=== PATIENT | female | born 1960 | race Caucasian/White ===

== ENCOUNTER → 2021-04-21 13:45 | Outpatient (BNVA) | payer MEDICARE, SELFPAY | PROVIDERS: PCP Nurse Practitioner Family; Visit Provider Specialist | DX: G35 Multiple sclerosis (principal); F02.80 Dementia in other diseases classified elsewhere, unspecified severity, without behavioral disturbance, psychotic disturbance, mood disturbance, and anxiety; E66.01 Morbid (severe) obesity due to excess calories; Z68.35 Body mass index [BMI] 35.0-35.9, adult | CPT/HCPCS: 99204 ==

== ENCOUNTER 2021-06-10 09:44 | Outpatient (CLI) | payer MEDICARE, SELFPAY ==
--- NOTE | 2021-06-10 11:00 | MR_ITS ---
WS: [id number] MRI HEAD WITH CONTRAST TECHNIQUE: Sagittal T1, T2 axial, T2 axial FLAIR, axial susceptibility weighted imaging, axial diffus ion weighted images, and coronal T2 images were obtained. Pre and post-T1 axial and post T1 coronal i mages. ADC and FSPGR images. CLINICAL INFORMATION: G35 - Multiple sclerosis COMPARISON: None. FINDINGS: No evidence of restricted diffusion to suggest acute ischemia. Ventricular system and basal cisterns are patent. Moderate supratentorial periventricular and pericallosal white matter changes compatible with history of demyelinating disease. Mild thinning of the corpus callosum. Moderate parenchymal volume loss. No significant T1 hypointense lesion load. No abnormal gadolinium enhancement. Normal posterior fossa. No extra-axial fluid collections. No evidence of mass or mass effect. No hemosiderin on susceptibly weighted images. Normal optic chiasm and pituitary infundibulum. Normal cavernous sinuses and Meckel's cave. No abnormal gadolinium enhancement. No evidence of active demye linating disease. Normal visualized dural venous sinuses. MR/MR head wo/w con [id number] IMPRESSION: 1. No evidence of restricted diffusion to suggest acute ischemia. 2. Moderate supratentorial white matter changes compatible with history of dem yelinating disease. 3. No abnormal gadolinium enhancement to indicate active disease. 4. No significant T1 hypointense lesion load. 5. Moderate parenchymal volume loss. Mild thinning of the corpus callosum. 6. No hemosiderin on susceptibly weighted images.
--- NOTE | 2021-06-10 11:45 | MR_ITS ---
WS: [id number] MRI CERVICAL SPINE NONCONTRAST TECHNIQUE: Sagittal T1, T2 and STIR imaging. Axial T2, gradient, and fiesta imaging. CLINICAL INFORMATION: G35 - Multiple sclerosis COMPARISON: None. FINDINGS: Straightening of the normal cervical lordosis. Degenerative disc disease worse at C3-C4 C5-C6 and C6- C7. No high-grade canal stenosis. Cord signal is normal. No chronic or acute demyelinating lesions in the cervical cord. No significant cord atrophy. No abnor mal gadolinium enhancement. C2-C3: Normal C3-C4: Mild disc osteophytic ridging. Mild LEFT and no significant RIGHT foraminal narrowing. Mild fa cet arthropathy. Spinal canal is patent. C4-C5: Disc osteophytic complex with endplate ridging. Mild bilateral bony foraminal narrowing. Mild facet arthropathy. Spinal canal is patent. C5-C6: Mild disc osteophytic ridging. Mild bilateral bony foraminal narrowing. Mild facet arthropathy . Spinal canal is patent. C6-C7: Mild disc bulging with slight effacement of ventral thecal sac. Mild RIGHT greater than LEFT b brad foraminal narrowing. Spinal canal is patent. Mild facet arthropathy. C7-T1: Mild LEFT greater than RIGHT foraminal narrowing. Spinal canal is patent. Visualized brain stem structures: Normal. Prevertebral soft tissues: Normal. MR/MR cervical spine wo/w [id number] IMPRESSION: 1. Cord signal is normal normal. No enhancing lesions or chronic demyelinating lesions within the cervical cord. 2. No significant cord atrophy. 3. No high-grade central canal stenosis. 4. Mild spondylitic changes with disc space narrowing worse at C3-C4 C5-C6 and C6-C7. 5. Mild bony foraminal narrowing worse at bilateral C5-C6 and RIGHT C6-C7.
== END 2021-06-10 09:45 | disposition home or self-care (01) ==
LOC: RAD 09:46
PROVIDERS: PCP Nurse Practitioner Family; Visit Provider Specialist
DX: G35 Multiple sclerosis (principal)
CPT/HCPCS: 70553; 72156

== ENCOUNTER → 2021-09-23 13:58 | Outpatient (BNVA) | payer MEDICARE, SELFPAY | PROVIDERS: PCP Nurse Practitioner Family; Visit Provider Specialist | DX: G35 Multiple sclerosis (principal); G31.84 Mild cognitive impairment of uncertain or unknown etiology | CPT/HCPCS: 99214 ==